=== PATIENT | male | born 1955 ===

== ENCOUNTER 2021-04-26 10:00 | Inpatient (IN) | payer OTHER ==
[~2021-04-26] VITALS: Ht 167.6 cm; Wt 77.1 kg
[2021-04-26] MEDS ORDERED: LOSARTAN POTASS50 MG PO (12:38)
[2021-04-26] MEDS ORDERED: LIPOFEN150 MG PO (12:39)
[2021-05-01] MEDS ORDERED: BACLOFEN20 MG (11:56)
[2021-05-01] MEDS ORDERED: OMEPRAZOLE20 MG (11:56)
[2021-05-01] MEDS ORDERED: VITAMIN D3250 MC1 (11:57)
[2021-05-01] MEDS ORDERED: SILDENAFIL CITR50 MG (11:57)
[2021-05-01] MEDS ORDERED: [UNRECOGNIZED DRUG - OTHER] (11:57)
[2021-05-01] MEDS ORDERED: SLEEP AID25 M1 (11:57)
[2021-05-01] MEDS ORDERED: BANOPHEN50 MG (11:57)
[2021-05-01] MEDS ORDERED: VITAMIN C500 M1 (11:58)
[2021-05-01] MEDS ORDERED: OMEGA 3-6-9 11200 M1 (11:58)
[2021-05-01] MEDS ORDERED: ONE-A-DAY MEN'1 EACH (11:58)
== END 2021-05-04 18:13 | disposition home or self-care (01) | DRG 330 ==
LOC: SURH 05-01 05:24 → O/R 05-01 05:24 → SURH 05-01 07:00 → O/R 05-03 16:31 → SURH 05-03 16:34 → O/R 05-04 09:49 → SURH 05-04 09:51
PROVIDERS: ADMIT Colon & Rectal Surgery; ATTEND Colon & Rectal Surgery
PROC: 0DBN4ZZ Excision of Sigmoid Colon, Percutaneous Endoscopic Approach (ICD-10-PCS; 2021-05-01)
PROC: 3E0F7SF Introduction of Other Gas into Respiratory Tract, Via Natural or Artificial Opening (ICD-10-PCS; 2021-05-01)
PROC: 0DBP4ZZ Excision of Rectum, Percutaneous Endoscopic Approach (ICD-10-PCS; principal; 2021-05-01 07:00)
DX: K57.32 Diverticulitis of large intestine without perforation or abscess without bleeding (principal); K92.1 Melena